=== PATIENT | female | born 1975 ===

== ENCOUNTER → 2016-06-04 | Outpatient (CLI) | payer OTHER ==
--- NOTE | 2016-06-04 15:28 | DX ---
Right Knee, 5 Views on June 04, 2016 at 1453 hours Indication: Knee injury after slipping on ice. Comparisons: None relevant. Findings: Bony alignment of the knee is anatomic. Joint spaces are well maintained. No evidence of fr acture or dislocation. Mild soft tissue swelling is present along the medial aspect of the knee. Impression: Mild soft tissue swelling. No evidence of fracture or dislocation.
== END ==
LOC: BMCIMAGING 14:56
PROVIDERS: ATTEND Family Medicine
DX: M25.561 Pain in right knee (principal)